=== PATIENT | female | born 1955 | race African-American/Black ===

== ENCOUNTER 2017-08-28 10:25 | Inpatient (IN) | payer OTHER ==
[~2017-08-28] VITALS: Ht 170.2 cm; Wt 50.6 kg
--- NOTE | ~2017-08-28 | EKG ---
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
--- NOTE | ~2017-08-28 | 2DMMODE ---
[facility] [place] [address] 2 D/M-MODE ECHOCARDIOGRAM Name: VINNIE ARBOLEDA Room #: 454-P ADM IN M.R.#: [id number] Admission: 08/28/17 Attend Phys: Clovis Lock MD Discharge: Date of : 57 Date of Service: 08/28/17 1542 Report #: [id number] THIS REPORT FOR: //name// APPROVED REPORT Study performed: 08/28/2017 15:06:00 EXAM: Comprehensive 2D, Doppler, and color-flow Echocardiogram Patient Location: Echo lab Room #: 454 Status: routine BSA: 1.56 HR: 80 bpm BP: 151/97 mmHg Rhythm: NSR/PVCs Other Information Study Quality: Good/lung artifact, thin body habitus/low window Indications CHF, SOB. Hx: HTN, HLP, CVA, COPD 2D Dimensions RVDd: 28.37 mm LVEF(%): 33.03 (>50%) IVSd: 14.54 (7-11mm) LVOT Diam: 20.34 (18-24mm) LVDd: 46.33 mm PWd: 10.11 (7-11mm) LVDs: 39.09 (25-40mm) Aortic Root: 32.58 mm Mcmanus's LVEF: 33.03 % Volumes Left Atrial Volume (Systole) Single Plane 4CH: 26.65 mL Single Plane 2CH: 59.01 mL Aortic Valve AoV Peak Clifford.: 1.11 m/s AO Peak Gr.: 4.94 mmHg LVOT Max P.24 mmHg LVOT Max V: 0.75 m/s ALEX Vmax: 2.19 cm2 Mitral Valve E/A Ratio: 0.7 MV Decel. Time: 625.88 ms [facility] [place] [address] 2 D/M-MODE ECHOCARDIOGRAM Name: BUFFY ARBOLEDAH Room #: 454-P [facility] IN M.R.#: [id number] Admission: 08/28/17 Attend Phys: Clovis Lock MD Discharge: Date of : 57 Date of Service: 08/28/17 1542 Report #: [id number] E Max Clifford.: 0.51 m/s MV A Clifford.: 0.76 m/s MV PHT: 181.51 ms Pulmonary Valve PV Peak Clifford.: 0.95 m/s PV Peak Gr.: 3.61 mmHg Pulmonary Vein P Vein S: 0.50 m/s P Vein D: 0.35 m/s P Vein S/D Ratio: 1.43 Tricuspid Valve TR Peak Clifford.: 2.11 m/s RAP Estimate: 5.00 mmHg TR Peak Gr.: 17.74 mmHg PA Pressure: 23.00 mmHg Left Ventricle The left ventricle is normal size. Mild to moderate left ventricular hypertrophy. Left ventricular systolic function is moderately decreased. LVEF is 40%. Hypokinesis involving base of the septum and inferoseptum Mild diastolic dysfunction is present (impaired relaxation pattern). Right Ventricle The right ventricle is normal size. The right ventricular systolic function is low normal. Atria The left atrium size is normal. The right atrium size is normal. Aortic Valve Aortic valve is trileaflet. Trace aortic regurgitation. There is no aortic valvular stenosis. Mitral Valve The mitral valve is normal in structure. Trace to mild mitral regurgitation. Tricuspid Valve The tricuspid valve is normal in structure. Trace to mild tricuspid regurgitation. Estimated PAP is 20-25mmHg. Pulmonic Valve Pulmonic valve is not well visualized. [address] [address] 2 D/M-MODE ECHOCARDIOGRAM Name: VINNIE ARBOLEDA Room #: 454-P [facility] IN M.R.#: [id number] Admission: 08/28/17 Attend Phys: Clovis Lock MD Discharge: Date of : 57 Date of Service: 08/28/17 1542 Report #: [id number] [employer] The aortic root is normal in size. The ascending aorta is normal in size. IVC is normal in size and collapses >50% with inspiration. Pericardium There is no pericardial effusion. <Conclusion> Left ventricular systolic function is moderately decreased. LVH LVEF is 40%. Hypokinesis involving base of the septum and inferoseptum Aortic valve is trileaflet. Trace aortic regurgitation. The mitral valve is normal in structure. Trace to mild mitral regurgitation. Trace to mild tricuspid regurgitation. Estimated pulmonary artery pressure of 20-25mmHg. There is no pericardial effusion. <ELECTRONICALLY SIGNED> By: Vinnie Castellon MD, [facility] 08/28/17 [id number] Vinnie Castellon MD, FACC /INF
--- NOTE | ~2017-08-28 | HC ---
[facility] [place] [place] [address] CONSULTATION Name: VINNIE ARBOLEDA Room #: 214-P [facility] IN M.R.#: [id number] Admission: 08/28/17 Attend Phys: Clovis Lock MD Discharge: Date of : 57 Report #: [id number] THIS REPORT FOR: //name// CC: FAM unknown Clovis Lock DATE OF SERVICE: 08/28/2017 Nephrology Consultation DATE OF ADMISSION: 08/28/2017 REASON FOR CONSULTATION: Elevated creatinine level. HISTORY OF PRESENT ILLNESS: This is a 62-year-old female who reports that she has been dyspneic for a number of months and it has been getting substantially worse over the past few weeks. She actually was admitted for 4 days to [facility] who was just discharged 3 days ago. She underwent diuresis there. She said she had been quite edematous prior to that. She was told she had fluid around her heart and lungs, although specifics were not remembered by the patient. She presented to the emergency room here today with worsening dyspnea and weakness. She has been placed on oxygen. She has THE labs and blood gases noted below. We are asked to see the patient for creatinine level of 2.4. In talking to her, originally she states she has no prior knowledge of any renal disease. She has had hypertension that has been treated with lisinopril, hydralazine, and furosemide (also for her heart failure). She does remember 15 years ago or more being told she had proteinuria. She says no workup was ever done. Again, she is unaware of any prior elevated creatinine level or renal problems. No history of nephrolithiasis, hematuria. She says her last urinary tract infection was probably as a teenager. We have no prior records or labs here at [facility] on this patient. PAST MEDICAL HISTORY: COPD. She smoked until a week ago and that has been fairly heavy. She says she has been on inhalers intermittently over the years, but has trouble keeping her insurance and hence has been without meds quite frequently. She has hypertension and again has been on the lisinopril, hydralazine, and furosemide. She had an echocardiogram apparently at [facility] that said she had 38% ejection fraction. She said she had a heart catheterization done many years ago, which showed a single area of stenosis. Nothing was wasted. There was also a mention of potential aortic valve problems at that time. SURGERIES: Cholecystectomy. She had surgery on her jaw and also ankle surgery. She has also had hysterectomy. [facility] [address] [place] [address] CONSULTATION Name: VINNIE ARBOLEDA Room #: 214-P ADM IN M.R.#: [id number] Admission: 08/28/17 Attend Phys: Clovis Lock MD Discharge: Date of : 57 Report #: [id number] MEDICATIONS: As listed on admission. There is a bit of discrepancy in this. Lisinopril, which is listed as 20, but she says that was increased to 40 mg daily; hydralazine, which is listed as 50 mg, but she says it is 100 mg t.i.d., furosemide 20 mg twice daily, aspirin 81 mg daily. ALLERGIES: Listed to CODEINE and PENICILLIN. SOCIAL HISTORY: The patient says that her about 3-4 months ago. She has obviously been distraught since that time. She was a heavy smoker until just the past week. She lives in [place], [place]. She is unemployed. REVIEW OF SYSTEMS: Worsening dyspnea as noted above. Denies asael chest pain or palpitations. No difficulty voiding urine. She states she had been sick at her stomach, but no current nausea or vomiting or abdominal pain. No diarrhea. She has some night sweats. No fevers or chills. She says she has lost weight, but that has been with the diuresis. She says 15 or 20 years ago, she weighed 195 pounds, but now is more than 115 range, but she has been that size for quite some time. PHYSICAL EXAMINATION: GENERAL: Thin, 62-year-old female, awake, alert, and responsive. Mild dyspnea at rest. VITAL SIGNS: Blood pressure 151/97, heart rate 81, temperature 98.1, oxygen saturation 96% on nasal cannula. HEENT: Shows pupils are 3 mm, reactive. Sclerae nonicteric. Oral mucosa is moist. NECK: Supple, without adenopathy, thyromegaly, JVD or bruit. CHEST: Shows faint rales in the right base, otherwise fairly clear lung kurtz, moderately good excursion. BACK: Shows no CVA tenderness. HEART: Has regular rate and rhythm. No murmur, gallop or rub. ABDOMEN: Has active bowel sounds, soft, nontender at this time. No organomegaly or masses. EXTREMITIES: Show no peripheral edema. She has 1+ peripheral pulses. No active joint findings. No rashes. LABORATORY DATA: Sodium 137, potassium 3.7, chloride 102, bicarbonate 28, BUN 35, creatinine 2.3, glucose 129, calcium 8.7, total protein 7.6, albumin 2.2, AST 44, ALT 22, total bilirubin 0.6. Troponin on admission less than 0.04. White count 4.0, hemoglobin 12.0, hematocrit 35.5, platelets 148,000. Differential had white count, 63 neutrophils, 19 lymphs, 14 monos, 3 eos, 1 basophil. Blood gas on admission: pH 7.52, pCO2 of 32.8, pO2 of 55.9. Lactate 1.72. No urine studies available. ASSESSMENT: [facility] [address] [place] [address] CONSULTATION Name: VINNIE ARBOLEDA Room #: 214-[facility] IN M.R.#: [id number] Admission: 08/28/17 Attend Phys: Clovis Lock MD Discharge: Date of : 57 Report #: [id number] 1. Elevated creatinine level. She has several things that suggest this is acute and some things that would suggest this is more chronic. She does have a long history of hypertension. She also remembers being told years ago that she had proteinuria, both of which could contribute to some chronic kidney disease. We need to get a urine study, quantify her proteinuria, and get a renal ultrasound. She has also recently been significantly diuresed, so that creatinine level may be up related to that. The bigger concern is that she has a high globulin fraction with an abnormal albumin globulin ratio. Her albumin is frankly low. Question is raised whether this is due to nephrotic proteinuria or whether she has a paraprotein disorder. We need to quantify proteinuria, check for a paraprotein. In addition, with a long history of proteinuria, we need to check for evidence of an abnormal TAJ. We also need to get a renal ultrasound. In the interim, she needs blood pressure control and the lisinopril and furosemide are fine. 2. Hypertension, moderate today. She is on multiple different medications. We will see how she responds to those. She needs dietary sodium restriction. 3. Chronic obstructive pulmonary disease, significant. Evaluation for that is ongoing. Long-term smoker, but she has now stopped smoking. 4. Hypoxemia. This seems to be out of proportion to her chronic obstructive pulmonary disease. She is getting a VQ scan. There might be some heart failure component, but she did not look to be in heart failure on examination. Again, her chest x-ray is fairly clear. PLAN: 1. Check urinalysis, as well as urine protein to creatinine ratio. 2. Check TAJ, ANCA. 3. Check kappa lambda light chain ratio. 4. Renal ultrasound. 5. Continue lisinopril and furosemide for now. 6. Repeat labs in the morning. 7. Low sodium diet. 8. Further changes once we got original workup done. We will certainly watch closely in her care. <ELECTRONICALLY SIGNED> By: Urbano Goyal MD 08/29/17 1117 [id number] 0305 Urbano Goyal MD /nt
--- NOTE | ~2017-08-28 | HC ---
[facility] [address] [place] [address] CONSULTATION Name: VINNIE ARBOLEDA Room #: 214-P [facility] IN M.R.#: [id number] Admission: 08/28/17 Attend Phys: Clovis Lock MD Discharge: Date of : 57 Report #: [id number] THIS REPORT FOR: //name// CC: FAM unknown Clovis Lock DATE OF SERVICE: 08/28/2017 REASON FOR CONSULTATION: COPD. IMPRESSION: 1. Acute chest pain, question etiology, cardiac versus pulmonary embolus versus gastroesophageal reflux disease. 2. Congestive heart failure. 3. Chronic obstructive pulmonary disease, doubt exacerbation. 4. Cardiomyopathy. 5. Acute renal failure. 6. Qhrgo-xv-htnlrhn hypoxic respiratory failure. 7. Hypertension. 8. History of tobacco use. 9. History of hepatitis C. 10. History of hypothyroidism. 11. Thrombocytopenia. 12. Protein-calorie malnutrition. HISTORY OF PRESENT ILLNESS: A 62-year-old female who was recently in [facility], found to have cardiomyopathy and had diuresis. She relates her legs were swollen and she improved; however, comes back to the hospital now with chest pain, increasing shortness breath and cough. She quit smoking approximately a week ago. She complains of orthopnea and PND. ALLERGIES: CODEINE AND PENICILLIN. HOME MEDICATIONS: Included lisinopril, hydralazine, Lasix and aspirin. PAST MEDICAL AND SURGICAL HISTORY: Surgeries: Hysterectomy, laparoscopic cholecystectomy, jaw repair and ankle surgeries. FAMILY HISTORY: Noncontributory. SOCIAL HISTORY: Positive tobacco, quit a week ago. Rare ETOH, per chart marijuana use. REVIEW OF SYSTEMS: Include hypertension, hyperlipidemia, cardiomyopathy, hypothyroidism, history of CHF and COPD. Positive cough, wheeze, shortness of breath and chest pain. No fever, chills or night sweats. [facility] [address] [place] [address] CONSULTATION Name: VINNIE ARBOLEDA Room #: 214-P [facility] IN M.R.#: [id number] Admission: 08/28/17 Attend Phys: Clovis Lock MD Discharge: Date of : 57 Report #: [id number] PHYSICAL EXAMINATION: VITAL SIGNS: Temperature 36.3, pulse 78, respirations 19 and BP 151/97. EYES: Negative icterus. NECK: Trachea midline. LUNGS: Showed crackles, wheezes bilateral. HEART: Regular. ABDOMEN: Bowel sounds present. EXTREMITIES: Show no cyanosis or edema. NEUROLOGIC: Alert, oriented. LABORATORY DATA: Chest x-ray showed no acute change. A pH of 7.528, pCO2 of 33 and pO2 of 56. White count 4, hemoglobin 12 and platelets 148,000. No bands. BUN 35, creatinine 2.3, glucose 129. SGOT 44. Albumin 2.2. D-dimer 3.25. We will follow closely with you. PLAN: Corticosteroids, aerosol therapy, V/Q scan, venous Doppler, Mucinex and persistent smoking cessation as per cards. <ELECTRONICALLY SIGNED> By: Osman Soria MD 08/30/17 1747 1737 0210 Osman Soria MD /nt
[2017-08-28 10:52] LABS: HEMATOCRIT 35.5 % (37.0-47.0); MCH 32.2 pg (26.0-34.0); MCHC 33.8 g/dL (28.0-37.0); MCV 95.3 fL (80.0-100.0); PLATELET COUNT 148 thou/uL (150-400); RBC 3.72 mil/uL (4.20-5.00); RDW 14.6 % (10.5-14.5)
[2017-08-28 10:58] LABS: BE(vivo) 4.2 mmol/L (-2 to +3); HCO3 26.7 mmol/L (22.0-26.0); PCO2 32.8 mmHg (35.0-45.0); PO2 55.9 mmHg (80.0-100.0); pH 7.528 (7.360-7.450); sO2 92.3 % (92.0-98.0)
[2017-08-28 11:04] LABS: ANION GAP 7 mmol/L (7-16); BUN 35 mg/dL (7-18); CALCIUM 8.7 mg/dL (8.5-10.1); CHLORIDE 102 mmol/L (98-107); CO2 28 mmol/L (21-32); CREATININE 2.3 mg/dL (0.6-1.0); GLUCOSE 129 mg/dL (74-106); POTASSIUM 3.7 mmol/L (3.5-5.1); SODIUM 137 mmol/L (136-145)
[2017-08-28 11:13] LABS: ALBUMIN 2.2 g/dL (3.4-5.0); SGOT 44 U/L (15-37); SGPT 22 U/L (30-65); TOTAL BILIRUBIN 0.6 mg/dL (<0.1-1.0); TOTAL PROTEIN 7.6 g/dL (6.4-8.2); TROPONIN-I < 0.04 ng/mL (<0.06)
[2017-08-28 11:16] LABS: ABSOLUTE NEUTROPHILS 2.5 thou/uL (1.4-8.2)
[2017-08-28 11:17] LABS: PLATELET ESTIMATE SLIGHTLY DECREASED
[2017-08-28] MEDS ORDERED: LISINOPRIL20 MG PO (12:07)
[2017-08-28] MEDS ORDERED: LASIX 20 MG TAB20 MG PO (12:07)
[2017-08-28] MEDS ORDERED: HYDRALAZINE 2525 MG PO (12:07)
[2017-08-28] MEDS ORDERED: ASPIR 8181 MG PO (12:08)
[2017-08-28 12:48] VITALS: BP 149/106
[2017-08-28 12:50] VITALS: BP 151/97
[2017-08-28 15:45] VITALS: BP 160/121
[2017-08-28 18:30] VITALS: BP 158/110
[2017-08-28 20:38] VITALS: BP 154/105
[2017-08-29 03:48] LABS: HEMATOCRIT 34.7 % (37.0-47.0); HEMOGLOBIN 11.6 gm/dL (12.0-15.0); MCHC 33.5 g/dL (28.0-37.0); MCV 95.3 fL (80.0-100.0); RBC 3.64 mil/uL (4.20-5.00); RDW 14.3 % (10.5-14.5); WBC 6.2 thou/uL (4.0-11.0)
[2017-08-29 04:13] LABS: CALCIUM 8.4 mg/dL (8.5-10.1); CREATININE 2.9 mg/dL (0.6-1.0); POTASSIUM 4.1 mmol/L (3.5-5.1)
[2017-08-29 06:16] LABS: URINE BILIRUBIN NEGATIVE (Negative); URINE BLOOD NEGATIVE (Negative); URINE CLARITY CLEAR; URINE COLOR YELLOW; URINE GLUCOSE-RANDOM* NEGATIVE (Negative); URINE KETONES NEGATIVE (Negative); URINE LEUKOCYTES-REFLEX NEGATIVE (Negative); URINE NITRITE-REFLEX NEGATIVE (Negative); URINE PROTEIN (DIPSTICK) 2+ (Negative); URINE UROBILINOGEN 0.2 E.U./dl (0.2-1.0)
[2017-08-29 06:21] LABS: PROT/CREAT RATIO 1.5; URINE CREATININE-RANDOM* 61.9 mg/dL; URINE PROTEIN-RANDOM* 90.2 mg/dL (<11.9)
[2017-08-29 06:25] LABS: BACTERIA-REFLEX 1-9 Few /HPF (None Seen); CASTS None Seen /LPF (None Seen); CRYSTALS None Seen /LPF (None Seen); SQUAMOUS 4-10 Moderate /LPF (0-3); URINE WBC-REFLEX 0-5 Rare /HPF (0-5)
[2017-08-29 06:26] LABS: URINE RBC 0-2 Rare /HPF (0-2)
[2017-08-29 07:57] VITALS: BP 168/117
[2017-08-29 11:56] VITALS: BP 140/90
[2017-08-29 16:07] VITALS: BP 143/103
[2017-08-29 19:10] VITALS: BP 150/104
[2017-08-29 23:12] VITALS: BP 140/99
[2017-08-30 01:05] LABS: GLYCOHEMOGLOBIN (HGB A1C) 5.2 % (4.8-5.6)
[2017-08-30 04:03] VITALS: BP 148/106
[2017-08-30 04:32] LABS: ABSOLUTE NEUTROPHILS 5.8 thou/uL (1.4-8.2); HEMATOCRIT 33.4 % (37.0-47.0); HEMOGLOBIN 11.3 gm/dL (12.0-15.0); LYMPHOCYTES 7.3 % (24.0-44.0); MCH 32.5 pg (26.0-34.0); MCHC 33.8 g/dL (28.0-37.0); MCV 96.2 fL (80.0-100.0); MONOCYTES 10.6 % (1.0-8.0); PLATELET COUNT 114 thou/uL (150-400); POLYS 82.1 % (36.0-66.0); RBC 3.47 mil/uL (4.20-5.00); WBC 7.1 thou/uL (4.0-11.0)
[2017-08-30 04:37] LABS: CALCIUM 8.2 mg/dL (8.5-10.1); CREATININE 2.8 mg/dL (0.6-1.0); POTASSIUM 3.9 mmol/L (3.5-5.1)
[2017-08-30 08:16] VITALS: BP 141/104
[2017-08-30 16:49] VITALS: BP 159/95
[2017-08-30 19:39] VITALS: BP 140/106
[2017-08-31] VITALS (7 sets, daily range): BP systolic 128–153; BP diastolic 84–100
[2017-08-31 04:17] LABS: CALCIUM 8.3 mg/dL (8.5-10.1); CREATININE 2.7 mg/dL (0.6-1.0); PHOSPHORUS 3.7 mg/dL (2.5-4.9); POTASSIUM 4.1 mmol/L (3.5-5.1)
[2017-08-31 12:10] LABS: KAPPA FREE LIGHT CHAINS 179.5 mg/L (3.3-19.4); KAPPA/LAMBDA RATIO 1.71 (0.26-1.65); LAMBDA FREE LIGHT CHAINS 104.9 mg/L (5.7-26.3)
[2017-09-01 03:56] VITALS: BP 127/83
[2017-09-01 04:13] LABS: CALCIUM 8.4 mg/dL (8.5-10.1); CREATININE 2.8 mg/dL (0.6-1.0); POTASSIUM 4.7 mmol/L (3.5-5.1)
[2017-09-01 06:25] VITALS: BP 147/101
[2017-09-01 07:18] VITALS: BP 134/90
[2017-09-01 11:24] VITALS: BP 138/102
[2017-09-01 15:21] VITALS: BP 105/74
[2017-09-01 19:50] VITALS: BP 134/96
[2017-09-02 03:20] LABS: CALCIUM 8.6 mg/dL (8.5-10.1); CREATININE 2.9 mg/dL (0.6-1.0); PHOSPHORUS 4.7 mg/dL (2.5-4.9); POTASSIUM 4.9 mmol/L (3.5-5.1)
[2017-09-02 04:08] VITALS: BP 115/76
[2017-09-02 07:22] VITALS: BP 136/94
[2017-09-02 11:20] VITALS: BP 110/83
[2017-09-02 15:00] VITALS: BP 130/88
[2017-09-02 19:39] VITALS: BP 132/83
[2017-09-03 04:33] VITALS: BP 135/89
[2017-09-03 06:00] LABS: ABSOLUTE NEUTROPHILS 8.1 thou/uL (1.4-8.2); BASOPHILS 0.1 % (0.0-2.0); HEMATOCRIT 35.3 % (37.0-47.0); HEMOGLOBIN 11.9 gm/dL (12.0-15.0); LYMPHOCYTES 4.3 % (24.0-44.0); MCH 32.2 pg (26.0-34.0); MCHC 33.7 g/dL (28.0-37.0); MCV 95.5 fL (80.0-100.0); PLATELET COUNT 131 thou/uL (150-400); POLYS 89.6 % (36.0-66.0); RBC 3.69 mil/uL (4.20-5.00); RDW 14.1 % (10.5-14.5)
[2017-09-03 06:15] LABS: CALCIUM 8.5 mg/dL (8.5-10.1); MAGNESIUM 1.7 mg/dL (1.8-2.4); POTASSIUM 4.9 mmol/L (3.5-5.1)
[2017-09-03 07:55] VITALS: BP 124/95
[2017-09-03] MEDS ORDERED: NYSTATIN100000 UNI SWISH&SPIT (09:21)
[2017-09-03] MEDS ORDERED: FLUCONAZOLE 10100 MG PO (09:21)
[2017-09-03] MEDS ORDERED: HYDRALAZINE 5050 MG PO (09:21)
[2017-09-03] MEDS ORDERED: NEBULIZER MISCELL (09:21)
[2017-09-03] MEDS ORDERED: AMLODIPINE BESY10 MG PO (09:21)
[2017-09-03] MEDS ORDERED: PULMICORT0.5 MG/22 INH (09:21)
[2017-09-03] MEDS ORDERED: LIPITOR10 MG PO (09:21)
[2017-09-03] MEDS ORDERED: DUONEB 2.5-0.5 M3 ML INH (09:21)
[2017-09-03] MEDS ORDERED: ALDACTONE25 MG PO (09:21)
[2017-09-03] MEDS ORDERED: COREG25 MG PO (09:21)
[2017-09-03] MEDS ORDERED: PREDNISONE 10 M10 MG PO (09:21)
[2017-09-03] MEDS ORDERED: TORSEMIDE20 MG PO (09:21)
[2017-09-03] MEDS ORDERED: ZESTRIL40 MG PO (09:21)
[2017-09-03 11:30] VITALS: BP 120/79
[2017-09-03 14:03] VITALS: BP 120/79
[2017-09-03 16:01] VITALS: BP 120/79
[2017-09-03 16:10] VITALS: BP 110/71
== END 2017-09-03 19:30 | disposition home or self-care (01) | DRG 291 ==
LOC: ER 10:25 → 4W 11:32 → EROBS 11:32 → 4W 12:31 → 2N 12:48
PROVIDERS: Hospitalist; Internal Medicine; Internal Medicine Nephrology; Internal Medicine Pulmonary Disease; Physician Assistant
DX: I13.0 Hypertensive heart and chronic kidney disease with heart failure and stage 1 through stage 4 chronic kidney disease, or unspecified chronic kidney disease (principal); J96.21 Acute and chronic respiratory failure with hypoxia; I50.23 Acute on chronic systolic (congestive) heart failure; J44.1 Chronic obstructive pulmonary disease with (acute) exacerbation; Z68.1 Body mass index [BMI] 19.9 or less, adult; E87.1 Hypo-osmolality and hyponatremia; N17.9 Acute kidney failure, unspecified; E46 Unspecified protein-calorie malnutrition; I42.9 Cardiomyopathy, unspecified; N18.9 Chronic kidney disease, unspecified; E78.00 Pure hypercholesterolemia, unspecified; E03.9 Hypothyroidism, unspecified; D69.6 Thrombocytopenia, unspecified; B19.20 Unspecified viral hepatitis C without hepatic coma; Z60.2 Problems related to living alone; R73.9 Hyperglycemia, unspecified; D64.9 Anemia, unspecified; Z88.6 Allergy status to analgesic agent; Z88.0 Allergy status to penicillin; Z90.710 Acquired absence of both cervix and uterus; Z90.49 Acquired absence of other specified parts of digestive tract; Z87.891 Personal history of nicotine dependence; Z86.73 Personal history of transient ischemic attack (TIA), and cerebral infarction without residual deficits; I25.2 Old myocardial infarction; Z79.82 Long term (current) use of aspirin; Z79.899 Other long term (current) drug therapy
CPT/HCPCS: 10081

== ENCOUNTER 2017-09-09 15:51 | Emergency (ER) | payer OTHER ==
[~2017-09-09] VITALS: Ht 170.2 cm; Wt 49.9 kg
--- NOTE | ~2017-09-09 | EKG ---
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 : 1955 Requested By: Barry Renteria Order Number: [id number] MD: Vinnie Castellon Measurements Intervals [place] Rate: 82 P: 43 SC: 236 QRS: 82 QRSD: 103 T: 70 QT: 374 QTc: 437 Interpretive Statements Sinus rhythm Prolonged SC interval Borderline right axis deviation Nonspecific ST segment abnormality Compared to ECG 08/28/2017 10:36:29 First degree AV block now present Ventricular premature complex(es) no longer present Anterior T wave abnormality is no longer present Electronically Signed On 09-10-2017 8:31:16 CDT by Vinnie Castellon [email or web address] <ELECTRONICALLY SIGNED> By: Vinnie Castellon MD, [facility] 09/10/17 0831 1633 1633 Vinnie Castellon MD, [facility] /EPI
[~2017-09-09 15:51] MED LIST: ALDACTONE25 MG PO; AMLODIPINE BESY10 MG PO; ASPIR 8181 MG PO; COREG25 MG PO; DUONEB 2.5-0.5 M3 ML INH; FLUCONAZOLE 10100 MG PO; HYDRALAZINE 2525 MG PO; HYDRALAZINE 5050 MG PO; LASIX 20 MG TAB20 MG PO; LIPITOR10 MG PO; LISINOPRIL20 MG PO; NEBULIZER MISCELL; NYSTATIN100000 UNI SWISH&SPIT; PREDNISONE 10 M10 MG PO; PULMICORT0.5 MG/22 INH; TORSEMIDE20 MG PO; ZESTRIL40 MG PO
[2017-09-09 16:39] LABS: HEMATOCRIT 34.7 % (37.0-47.0); HEMOGLOBIN 11.8 gm/dL (12.0-15.0); MCH 32.5 pg (26.0-34.0); MCHC 34.1 g/dL (28.0-37.0); MCV 95.2 fL (80.0-100.0); PLATELET COUNT 123 thou/uL (150-400); RBC 3.64 mil/uL (4.20-5.00); RDW 14.2 % (10.5-14.5); WBC 8.1 thou/uL (4.0-11.0)
[2017-09-09 16:44] LABS: ANION GAP 6 mmol/L (7-16); BUN 76 mg/dL (7-18); CALCIUM 8.1 mg/dL (8.5-10.1); CHLORIDE 94 mmol/L (98-107); CO2 28 mmol/L (21-32); CREATININE 3.1 mg/dL (0.6-1.0); GLUCOSE 342 mg/dL (74-106); POTASSIUM 4.4 mmol/L (3.5-5.1); SODIUM 128 mmol/L (136-145)
[2017-09-09 16:51] LABS: ALBUMIN 2.1 g/dL (3.4-5.0); SGOT 33 U/L (15-37); SGPT 41 U/L (30-65); TOTAL BILIRUBIN 0.6 mg/dL (<0.1-1.0); TOTAL PROTEIN 7.2 g/dL (6.4-8.2); TROPONIN-I < 0.04 ng/mL (<0.06)
[2017-09-09 16:59] LABS: ABSOLUTE NEUTROPHILS 6.4 thou/uL (1.4-8.2)
[2017-09-09 17:00] LABS: ANISOCYTOSIS 1+
== END 2017-09-09 18:00 | disposition home or self-care (01) ==
LOC: ER 15:51
PROVIDERS: Emergency Medicine
DX: I95.1 Orthostatic hypotension (principal); I50.9 Heart failure, unspecified; J44.9 Chronic obstructive pulmonary disease, unspecified; F17.210 Nicotine dependence, cigarettes, uncomplicated; Z86.73 Personal history of transient ischemic attack (TIA), and cerebral infarction without residual deficits; Z88.5 Allergy status to narcotic agent; Z88.0 Allergy status to penicillin

== ENCOUNTER 2017-10-29 12:22 | Observation (INO) | payer OTHER ==
[~2017-10-29] VITALS: Ht 170.2 cm; Wt 49.9 kg
--- NOTE | ~2017-10-29 | EKG ---
[place] [address] 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1955 Requested By: Jose Oliva Order Number: [id number] MD: Vinnie Castellon Measurements Intervals [place] Rate: 57 P: 57 WA: 222 QRS: 61 QRSD: 89 T: 118 QT: 436 QTc: 425 Interpretive Statements Sinus rhythm Prolonged [place] interval Abnrm T, consider ischemia, anterolateral lds Baseline wander in lead(s) V4 Compared to ECG 09/09/2017 16:33:30 T wave inversion is now present Electronically Signed On 10-30-2017 8:48:45 CDT by Vinnie Castellon [email or web address] <ELECTRONICALLY SIGNED> By: Vinnie Castellon MD, [facility] 10/30/17 0848 1317 1317 Vinnie Castellon MD, [facility] /EPI
[2017-10-29 12:25] VITALS: BP 125/82
[2017-10-29 12:31] LABS: HEMOGLOBIN 12.9 gm/dL (12.0-15.0); MCH 32.6 pg (26.0-34.0); MCHC 34.7 g/dL (28.0-37.0); MCV 93.9 fL (80.0-100.0); PLATELET COUNT 151 thou/uL (150-400); RBC 3.94 mil/uL (4.20-5.00); RDW 14.3 % (10.5-14.5); WBC 5.7 thou/uL (4.0-11.0)
[2017-10-29 12:44] LABS: ANION GAP 10 mmol/L (7-16); BUN 42 mg/dL (7-18); CALCIUM 9.1 mg/dL (8.5-10.1); CHLORIDE 103 mmol/L (98-107); CO2 21 mmol/L (21-32); CREATININE 2.7 mg/dL (0.6-1.0); GLUCOSE 198 mg/dL (74-106); POTASSIUM 4.6 mmol/L (3.5-5.1); SODIUM 134 mmol/L (136-145)
[2017-10-29 12:53] LABS: ALBUMIN 2.3 g/dL (3.4-5.0); SGOT 45 U/L (15-37); SGPT 34 U/L (30-65); TOTAL BILIRUBIN 0.6 mg/dL (<0.1-1.0); TOTAL PROTEIN 8.6 g/dL (6.4-8.2); TROPONIN-I <0.06 ng/mL (<0.06)
[2017-10-29 13:05] LABS: ABSOLUTE NEUTROPHILS 2.5 thou/uL (1.4-8.2); PLATELET ESTIMATE NORMAL
[2017-10-29 14:04] LABS: URINE BILIRUBIN NEGATIVE (Negative); URINE BLOOD NEGATIVE (Negative); URINE CLARITY CLEAR; URINE COLOR YELLOW; URINE GLUCOSE-RANDOM* NEGATIVE (Negative); URINE KETONES NEGATIVE (Negative); URINE LEUKOCYTES-REFLEX NEGATIVE (Negative); URINE NITRITE-REFLEX NEGATIVE (Negative); URINE PROTEIN (DIPSTICK) TRACE (Negative); URINE UROBILINOGEN 0.2 E.U./dl (0.2-1.0)
[2017-10-29 15:54] VITALS: BP 125/82
[2017-10-29] MEDS ORDERED: HYDRALAZINE 2525 MG PO (16:12)
[2017-10-29 16:34] VITALS: BP 132/87
[2017-10-29 20:02] VITALS: BP 164/101
[2017-10-29 23:55] VITALS: BP 145/99
[2017-10-30 03:08] LABS: GLYCOHEMOGLOBIN (HGB A1C) 7.5 % (4.8-5.6)
[2017-10-30 03:41] VITALS: BP 136/92
[2017-10-30 06:16] LABS: CHOLESTEROL 112 mg/dL (<200); HDL CHOLESTEROL 37 mg/dL (>40); LDL CHOLESTEROL 59 mg/dL (<100); SERUM ASSESSMENT Clear; TRIGLYCERIDE 82 mg/dL (<150); VLDL 16 mg/dL (<40)
[2017-10-30 08:00] VITALS: BP 148/108
[2017-10-30 16:00] VITALS: BP 143/107
[2017-10-30 16:44] VITALS: BP 143/107
== END 2017-10-30 18:20 | disposition home or self-care (01) ==
LOC: ER 12:22 → 4W 15:35 → EROBS 15:35 → 4W 16:42 → ENTRNSPT 10-30 17:55 → 4W 10-30 18:20
PROVIDERS: Emergency Medicine; Nurse Practitioner
DX: A08.4 Viral intestinal infection, unspecified (principal); R19.7 Diarrhea, unspecified; R94.31 Abnormal electrocardiogram [ECG] [EKG]; R00.0 Tachycardia, unspecified; I95.9 Hypotension, unspecified; I13.0 Hypertensive heart and chronic kidney disease with heart failure and stage 1 through stage 4 chronic kidney disease, or unspecified chronic kidney disease; I50.9 Heart failure, unspecified; N18.9 Chronic kidney disease, unspecified; J44.9 Chronic obstructive pulmonary disease, unspecified; E78.5 Hyperlipidemia, unspecified; I25.2 Old myocardial infarction; Z87.891 Personal history of nicotine dependence; Z86.73 Personal history of transient ischemic attack (TIA), and cerebral infarction without residual deficits